=== PATIENT | male | born 1985 | race Caucasian/White ===

== ENCOUNTER 2024-03-07 17:19 | Emergency (ER) | payer BC, SELFPAY ==
[2024-03-07 17:19] VITALS: BP 133/89; PULSE 119; RESP 20; TEMP 36.4; O2SAT 98; BMI 31.4
--- NOTE | 2024-03-07 17:32 | EDS_ITS ---
<Statement entered by Emir Willson DO - 03/07/24 21:16> Patient was seen and examined with physician public services assistant Mariajose All components of the history and physical confirmed and agreed. History of present illness and physical exam: Patient is a 38-year-old male with no known significant past medical history who presents to the emergency department with chief complaint of dog bite to the right wrist. Patient states that earlier this evening she was trying to break up a fight between his dog and his mother's dogs. He states that his dogs are up-to-date on all other vaccines and he is unsure about his mother's dog but states that she still has her dog with her. Patient states that his tetanus shot is not up-to-date. Patient states that he is left-handed. Review of systems: Constitutional: Denies any fevers, chills, headaches Neurological: Denies any numbness, wheeze, tingling Musculoskeletal: Complains of superficial abrasions noted to the right hand and puncture wound from the dog bite Physical exam General: Patient sitting in bed rest comfortably did not appear to be in acute distress Head: Atraumatic, normocephalic Eyes: PERRL body, EOMI biotic no conjunctival injection noted Neck: Soft, supple, trachea midline Cardiovascular: Regular in rhythm Extremities: +5/5 strength noted in the bilateral upper extremities, radial pulses +2/4 in the left upper extremities, patient was able to give me the okay sign, thumbs up sign, oppose his thumb to his pinky bilaterally without any difficulty Neurological: Patient follow commands knew that he was at [facility] year is 2023. Sensation grossly intact in the median, ulnar and radial nerve distribution bilaterally Skin: Patient has small superficial abrasions noted to the right wrist region with a small puncture wound noted to the dorsal aspect of the distal right wrist. MDM Patient is a 38-year-old male who presented to the emerged from with chief complaint of dog bite to the right wrist region. Patient's tetanus shot will be updated here. On the differential diagnose includes Melamin to dog bite, retained foreign body. Patient will have x-ray performed and then be reevaluated. Patient's x-ray reviewed by myself and by radiology which showed no acute findings. Patient will be started on Augmentin and he will be given his first dose here. Prescription was sent to his pharmacy. The wound was copiously irrigated. He was encouraged to return with concerns for infection such as surrounding redness, purulent discharge or any other concerns while on the antibiotics. He was encouraged to follow-up with a primary care physician which she was referred to. All question concerns answered he would like to go home he is discharged home in stable condition. Final impression: Dog bite to right wrist Disposition: Patient will be discharged home in stable condition Supervising attending attestation: Emir Willson D.O. [facility] History of Present Illness Chief Complaint: Bite Narrative Narrative: Patient presenting today with a dog bite to his right wrist that occurred this evening. He was trying to break up a fight between his and his mom's dog. His dog is up-to-date with rabies vaccine. Patient is not up-to-date with his tetanus shot. He denies any other injury. He is left-handed. He denies any chronic medical conditions or history of diabetes. PFSH PFSH Home Medications ?Medication ?Instructions ?Recorded ?Last Taken ?Type amoxicillin 875 mg-potassium 1 tab PO BID 5 days #10 tabs 03/07/24 Unknown Rx clavulanate 125 mg tablet Allergy/AdvReac Type Severity Reaction Status Date / Time No Known Allergies Allergy Verified 03/07/24 17:19 Social History Smoking Status: Never smoker [facility] ED Constitutional Constitutional ED: Denies chills or fever(s) Cardiovascular Cardiovascular: Denies chest pain Respiratory/Chest Respiratory/Chest: Denies dyspnea Musculoskeletal Musculoskeletal: Denies arthralgias or myalgias Integumentary Denies Abrasions Neurologic Neurologic: Denies paresthesias EXAM Physical Exam Const Vital Signs: 03/07/24 17:19 Temperature 97.5 F L Temperature Source Temporal Pulse Rate 119 H Respiratory Rate 20 H Blood Pressure 133/89 H Blood Pressure Mean 103 Pulse Ox 98 Oxygen Delivery Method Room Air Positive well nourished, well developed and no apparent distress General Appearance ED: well developed HEENT Reports normocephalic and head/scalp atraumatic Mouth ED: Yes moist mucous membranes normal Eyes PERRL and EOMs intact bilaterally Neck full ROM and supple Resp normal respiratory effort and clear to auscultation bilaterally Cardio regular rate and regular rhythm Back/Spine normal ROM and normal to inspection Extremity full ROM Extremity Narrative: Single puncture wound to the anterior aspect of the right distal forearm with superficial abrasions. Right radial pulse 2+, good cap refill, sensation intact. Patient has full ROM to the right wrist and all 5 fingers of the right hand. Neuro oriented x3, CN's II-XII intact bilaterally, moves all extremities, no focal motor deficits and no sensory deficits noted Sensorium / Orientation: awake and alert Psych mental status grossly normal and thought process normal Skin Skin Narrative: Aside from puncture wound and abrasions from dog bite to right distal forearm patient has no rashes or lesions noted. MDM MDM MDM Narrative Medical decision making narrative: Patient presenting today due to a dog bite that occurred this evening to his right ventral wrist. Tetanus updated here, he will be started on Augmentin with first dose here. He has 1 small puncture wound and 2 superficial abrasions. The puncture wound was copiously irrigated with saline and chlorhexidine, it was then bandaged with bacitracin ointment. Strict return instructions were discussed. Wound care instructions discussed. I have given him a PCP referral. X-ray of the wrist was obtained and is negative. Patient discharged home in stable condition. Radiography X-Ray: Read by ED Physician Diagnostic Testing: Clinical Impression(s) from Imaging Studies Wrist X-Ray 03/07/24 17:55 IMPRESSION: Unremarkable study. Electronically Signed: Corbin Mcintosh MD at 18:21 EST , Discharge Plan Triage Chief Complaint: Bite ED Midlevel Provider: Aylin Leslie ED Provider: Emir Willson Dx/Rx/DC Orders Clinical Impression: Dog bite Instructions: ED Dog Bite Prescriptions: New amoxicillin-pot clavulanate 875-125 mg tablet 1 tab PO BID 5 Days Qty: 10 0RF Primary Care Provider: Care Physician,No Primary Referrals: NOT,DEFINED [Non-Staff] - Activity Restrictions/Additional Instructions: Follow-up with PCP, I have given you a referral. Return for any signs of infection. [facility] can [facility] an [facility] with [facility], their number is [phone]. Print Language: Hungarian Disposition Disposition: Home, Self Care
[2024-03-07] MEDS: Diphth,Pertuss(Acell),Tet Vac 0.5 ML Vial IM (17:42)
[2024-03-07] MEDS: Amox/Clavulanate 875 MG Tablet PO (17:42)
--- NOTE | 2024-03-07 17:55 | RAD_ITS ---
INDICATION: Trauma, dog bite EXAMINATION/TECHNIQUE: X-RAY - RIGHT XR Wrist Min 3 Views 3 VIEWS COMPARISON: None. FINDINGS: SOFT TISSUES: No soft tissue swelling or gas. No radiopaque foreign body. BONES/JOINTS: No acute fracture. Joint spaces anatomically maintained. No sclerotic or destructive changes observed. RAD/Wrist min 3 Views IMPRESSION: Unremarkable study. Electronically Signed: Corbin Mcintosh MD at 18:21 EST ,
== END 2024-03-07 18:43 | disposition home or self-care (01) ==
PROVIDERS: Emergency Provider Emergency Medicine; Visit Provider Emergency Medicine
DX: S61.551A Open bite of right wrist, initial encounter (principal); W54.0XXA Bitten by dog, initial encounter; Z23 Encounter for immunization
CPT/HCPCS: 73110; 90715; 99283